=== PATIENT | male | born 1940 | race Caucasian/White ===

== ENCOUNTER → 2017-09-09 | Outpatient (CLI) | payer OTHER, MEDICARE | LOC: BRMIMAGING 10:46 | PROVIDERS: ATTEND Internal Medicine | DX: M85.842 Other specified disorders of bone density and structure, left hand (principal); M85.841 Other specified disorders of bone density and structure, right hand; M77.8 Other enthesopathies, not elsewhere classified; N18.9 Chronic kidney disease, unspecified; M1A.30X0 Chronic gout due to renal impairment, unspecified site, without tophus (tophi) | CPT/HCPCS: 73130-PO ==